=== PATIENT | female | born 1945 | race Caucasian/White ===

== ENCOUNTER 2025-08-03 23:57 | Emergency (ER) | payer MEDICARE | END 2025-08-04 01:34 | disposition home or self-care (01) | LOC: JP.ED 23:57 | DX: J06.9 Acute upper respiratory infection, unspecified (principal); H83.03 Labyrinthitis, bilateral; Z88.2 Allergy status to sulfonamides; Z79.899 Other long term (current) drug therapy; Z86.16 Personal history of COVID-19 | CPT/HCPCS: 93010; 99283; 99284; A9270-GY; U0002 ==